=== PATIENT | male | born 1980 | race Caucasian/White ===

== ENCOUNTER 2016-09-01 10:20 | Emergency (ER) | payer BC, OTHER ==
[2016-09-01 12:09] LABS: HEMOGLOBIN 15.3 gm/dl (14.0-17.5); RED BLOOD COUNT 5.16 M/UL (4.20-5.50)
[2016-09-01 12:35] LABS: BUN/CREATININE RATIO 12 (0-10)
== END 2016-09-01 15:40 | disposition home or self-care (01) ==
LOC: ER1 10:20
PROVIDERS: Emergency Medicine
DX: N13.2 Hydronephrosis with renal and ureteral calculous obstruction (principal); Z87.442 Personal history of urinary calculi
CPT/HCPCS: 36415; 76870; 80053; 81001; 83690; 85025; 96374; 96375; 99284; J1885; J2270; J2405

== ENCOUNTER 2020-12-03 12:22 | Emergency (ER) | payer BC ==
[~2020-12-03 12:22] MED LIST: OMEPRAZOLE20 M1 PO; PROTONIX40 MG PO
[2020-12-03 13:06] LABS: RED BLOOD COUNT 5.2 M/UL (4.20-5.50); WHITE BLOOD COUNT 10.6 K/UL (4.5-11.0)
[2020-12-03 13:32] LABS: BUN/CREATININE RATIO 11 (0-10)
[2020-12-03] MEDS ORDERED: CIPRO500 MG PO (17:25)
[2020-12-03] MEDS ORDERED: FLAGYL500 MG PO (17:25)
[2020-12-03] MEDS ORDERED: ZOFRAN4 MG PO (17:26)
== END 2020-12-03 17:30 | disposition home or self-care (01) ==
LOC: ER1 12:22
PROVIDERS: Preventive Medicine Occupational Medicine
DX: K52.9 Noninfective gastroenteritis and colitis, unspecified (principal)
CPT/HCPCS: 80053; 81001; 82150; 82272; 83605; 83690; 85025; 96372; 96374; 99284; J0500; J2405; Q9967

== ENCOUNTER → 2021-06-11 | Outpatient (CLI) | payer BC ==
[~2021-06-11] MED LIST changes: +CIPRO500 MG PO; +FLAGYL500 MG PO; +ZOFRAN4 MG PO
== END ==
LOC: RAD 12:01
DX: R06.02 Shortness of breath (principal)
CPT/HCPCS: 71046